=== PATIENT | female | born 1955 | race Caucasian/White ===

== ENCOUNTER 2018-04-11 16:50 | Inpatient (IN) | payer OTHER, MEDICARE ==
[~2018-04-11] VITALS: Ht 160 cm; Wt 87.5 kg
[~2018-04-11 16:50] MED LIST: BACTRIM DS TAB1 EACH PO; FUROSEMIDE20 MG PO; KEFLEX500 M1 PO; LUMIGAN 7.5 ML7.5 M1 OP; NEXIUM 40MG40 MG PO; OXYCODONE AND A1 TA2 PO; OXYCONTIN10 MG PO; PATADAY 2.5 ML2.5 ML OPH; ULTRAM(MONOGRAP50 MG PO
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
[2018-04-11 17:48] LABS: ABSOLUTE BASOPHIL COUNT 0 /CUMM (0.0-0.2); ABSOLUTE EOSINOPHIL COUNT 0 /CUMM (0.0-0.7); ABSOLUTE GRANULOCYTE CT 8.2 /CUMM (1.4-6.5); ABSOLUTE LYMPH COUNT 0.9 /CUMM (1.2-3.4); ABSOLUTE MONOCYTE COUNT 0.6 /CUMM (0.10-0.60); BASOPHIL % 0.1 % (0.0-2.0); EOSINOPHIL % 0.2 % (0-5); GRANULOCYTE % 84.4 % (42.2-75.2); HEMATOCRIT 43.5 % (37-47); MEAN CORPUSCULAR HGB 29.5 PG (27.0-31.0); MEAN CORPUSCULAR HGB CONC 33.1 G/DL (33.0-37.0); MEAN CORPUSCULAR VOLUME 89.2 FL (81.0-99.0); MEAN PLATELET VOLUME 8.9 FL (7.4-10.4); PLATELET COUNT 129 /CUMM (130-400); RED BLOOD CELL CT 4.88 /CUMM (4.20-5.40); WHITE BLOOD CELL COUNT 9.7 /CUMM (4.8-10.8)
[2018-04-11] MEDS ORDERED: LUMIGAN2.5 ML OU (21:39)
[2018-04-11] MEDS ORDERED: VITAMIN D250000 UNIT PO (21:40)
[2018-04-11] MEDS ORDERED: PERCOCET 7.5-31 EACH PO (21:40)
[2018-04-11] MEDS ORDERED: PATADAY2.5 ML OU (21:40)
[2018-04-11] MEDS ORDERED: NEXIUM40 M1 PO (21:40)
[2018-04-11] MEDS ORDERED: HYDROCHLOROTH12.5 M3 PO (21:42)
[2018-04-11] MEDS ORDERED: MULTIVITAMINS1 EAC9 PO (21:42)
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
[2018-04-12 22:15] VITALS: BP 140/75
[2018-04-13 08:08] VITALS: BP 143/87
--- NOTE | 2018-04-13 11:44 | History & Physical ---
General Information and HPI History of Present Illness: 63-year-old female with history of chronic kidney disease stage III, hepatitis C status post treatment with Harvoni, cirrhosis, osteoarthritis, muscular dystrophy. Admitted to the inpatient psychiatric service after being brought to the ER by family with concerns of worsening paranoia. Admitted to the inpatient psychiatry service for further management. Currently resting comfortably not in any acute distress. D denies abdominal pain. Denies diarrhea or constipation. Denies chest pain or palpitations. Denies nausea or vomiting. Denies bloody stools. Admits to chronic bilateral lower extremity swelling worse on the left. Denies heat or cold intolerance. Denies weight loss. Allergies/Medications Allergies: Coded Allergies: Iodinated Contrast- Oral and IV Dye (Iodinated Contrast Media - Oral and) (ITCHY 04/11/18) Only allergic to iodinated contrast aspirin (PER PT NOT SUPPOSE TO TAKE MED BECAUSE IT INTERACTS WITH 04/11/18) ANOTHER MED shellfish derived (RASH AND HOT 04/11/18) Home Med list Alprazolam 0.5 MG TABLET 0.5 MG PO AT BEDTIME insomnia Bimatoprost (Lumigan) 0.01 % DROPS 1 GTT OU QPM BOTH EYES (Reported) Ergocalciferol (Vitamin D2) (Vitamin D2) 50,000 UNIT CAPSULE 1 CAP PO Q2W SUPPLEMENT (Reported) Esomeprazole (Nexium) 40 MG CAPSULE.DR 1 CAP PO DAILY GI (Reported) Haloperidol 1 MG TABLET 1 MG PO AT BEDTIME delirium Hydrochlorothiazide 12.5 MG CAPSULE 1 CAP PO PRN DIURETIC (Reported) Multiple Vitamin (Multivitamins) 1 EACH TABLET 1 TAB PO PRN SUPPLEMENT ( Reported) Olopatadine HCl (Pataday) 0.2 % DROPS 1 GTT OU DAILY ALLERGIES (Reported) Oxycodone HCl/Acetaminophen (Percocet 7.5-325 MG Tablet) 7.5 MG-325 MG TABLET 1 TAB PO TID PRN PAIN (Reported) Past History Travel History Traveled to [place] past 21 day No Medical History Any Pertinent Medical History? unobtainable Neurological: multiple sclerosis Gastrointestinal: HEPATITIS C Hepatic: cirrhosis, hepatitis C Musculoskeletal: osteoarthritis, MUSCULAR DYSTROPHY Blood Disorders: TTP Isolation History: Standard Surgical History Surgical History: non-contributory Past Family/Social History Psychosocial History Where do you live? Home ETOH Use: 6 Illicit Drug Use: denies illicit drug use Review of Systems Review of Systems Constitutional: Denies: see HPI. Exam & Diagnostic Data Last 24 Hrs of Vital Signs/I&O Vital Signs Date Time Temp Pulse Resp B/P B/P Pulse O2 O2 Flow FiO2 Mean Ox Delivery Rate 04/13 0808 97.4 94 143/87 / 2215 98.7 92 140/75 / 2140 Room Air / 2054 98.7 103 20 166/87 98 Room Air / 1859 98.8 104 18 143/84 97 Room Air / 1830 Room Air / 1706 98.1 71 18 145/86 98 Room Air / 1602 Room Air / 1459 99.1 80 18 121/86 99 /08 1212 Room Air Physical Exam General Appearance Alert, Oriented X3, Cooperative, No Acute Distress Skin No Rashes, No Breakdown HEENT PERRLA, EOMI Neck Supple Cardiovascular Regular Rate, Normal S1, Normal S2, No Murmurs Lungs Clear to Auscultation, Normal Air Movement Abdomen Normal Bowel Sounds, Soft, No Tenderness Neurological Exam Findings: Cranial Nerves 3-12 NL Cranial Nerves II through XII: Within normal limits. Extremities No Clubbing (L.R pedal edema) Assessment/Plan Assessment: 63-year-old female history of chronic kidney disease stage III, cirrhosis secondary to hep C status post therapy with Harvoni, muscular dystrophy admitted for management of worsening paranoia. Currently denies any active medical symptoms. Recommendations: -Continue management of her prior diet as recommended by the psychiatry service. -Please call the medical service as needed. As Ranked By This Provider Problem List: 1. Paranoia (psychosis) Miscellaneous Miscellaneous Documentation Attending Case Discussed With: Gardenia Naidu MD Primary Care Physician: Severo Wilde MD Patient sees these Specialists None. Level of Patient Care: [facility]
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
[2018-04-13 12:22] VITALS: BP 131/83
[2018-04-13 16:13] VITALS: BP 134/70
[2018-04-13 20:24] VITALS: BP 100/78
[2018-04-14 07:37] VITALS: BP 124/61
[2018-04-14 08:14] LABS: ABSOLUTE BASOPHIL COUNT 0 /CUMM (0.0-0.2); ABSOLUTE EOSINOPHIL COUNT 0.2 /CUMM (0.0-0.7); ABSOLUTE GRANULOCYTE CT 6.8 /CUMM (1.4-6.5); ABSOLUTE LYMPH COUNT 1.8 /CUMM (1.2-3.4); ABSOLUTE MONOCYTE COUNT 0.7 /CUMM (0.10-0.60); BASOPHIL % 0.5 % (0.0-2.0); EOSINOPHIL % 1.7 % (0-5); GRANULOCYTE % 71.5 % (42.2-75.2); HEMATOCRIT 44.4 % (37-47); MEAN CORPUSCULAR HGB 29.9 PG (27.0-31.0); MEAN CORPUSCULAR HGB CONC 33.7 G/DL (33.0-37.0); MEAN CORPUSCULAR VOLUME 88.7 FL (81.0-99.0); MEAN PLATELET VOLUME 9.4 FL (7.4-10.4); PLATELET COUNT 141 /CUMM (130-400); RBC DISTRIBUTION WIDTH 14.6 % (11.5-14.5); RED BLOOD CELL CT 5.01 /CUMM (4.20-5.40); WHITE BLOOD CELL COUNT 9.6 /CUMM (4.8-10.8)
[2018-04-14 12:05] VITALS: BP 147/82
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
[2018-04-14 15:28] VITALS: BP 140/79
[2018-04-14 19:35] VITALS: BP 148/87
[2018-04-15 07:39] VITALS: BP 140/89
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
[2018-04-15 12:27] VITALS: BP 141/79
--- NOTE | 2018-04-15 12:30 | SOCIAL WORKER PROG NOTE PSYCH ---
Social Work Progress Note Progress Note The services requested require additional review. You will be contacted regarding the status of this request if further information is needed. An authorization decision will be made within the required timeframes and details of that decision may be found under the member's authorization history. Member Name Member ID Member Subscriber Name Subscriber ID GILBERTO WILKINS [id number] GILBERTO WILKINS [id number] Pended Authorization # Client Authorization # Type of Request [id number] CONCURRENT Date of Admission/ Start of Services Requested From Submission Date 04/12/2018 04/15/2018 04/15/2018 Level of Service Type of Service Level of Care Type of Care INPATIENT/HLOC [facility]patient [facility] Reason Code P76 Provider Name & Address Provider ID Provider Alternate ID NPI # for Authorization NIKIA WILLIAMSON [id number] N/A [address] [facility] [id number] Message
[2018-04-15 16:47] VITALS: BP 148/98
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
[2018-04-15 20:05] VITALS: BP 131/80
[2018-04-16 07:48] VITALS: BP 134/87
--- NOTE | 2018-04-16 08:04 | CP SOUTH PROGRESS NOTE PSYCH ---
Psych (Inpt) Progress Note Progress Note Treatment team (ELBA, RN, OTR/L, Psychiatrist) discussed the Pt.'s progress, treatment plan, and aftercare plans. Vital Signs: Blood pressure: 134/87 mmHg, pulse 91 bpm, and temperature 97.8F Mental Status examination: The patient uses a walker because of peripheral neuropathy. She was pleasant, calm and cooperative. Today, she did not bring up concerns about surveillance/ identity theft Pt. was less talkative and less tangential today She reported that her mood was "good", affect was calm and did not show irritability or anger or frustration during the interview. Pt. denied hallucinations, did not bring up ideas of reference/paranoid ideation patient did very well on the cognitive testing with intact short-term memory intact attention and concentration including spelling backwards subtracting by sevens naming the presidents recalling words and full orientation to time place and person Assessment: Adry is a 63-year-old White female with acute onset of paranoia in the setting of recent illness, seems to be improving. Yeeamuf-Qyjsa-Pndpo disease Plan update Continue Haldol 1 mg at bedtime and Alprazolam 0.5 MG AT BEDTIME Ergocalciferol 50,000 IU Q 2 WEEKS Haloperidol 1 MG AT BEDTIME Haloperidol 0.25 MG FOUR TIMES A DAY PRN Hydrochlorothiazide 12.5 MG Q12P PRN Latanoprost 1 GTT AT BEDTIME Omeprazole 40 MG DAILY AC Oxycodone/ 1 TAB TID PRN Acetaminophen Acetaminophen Alprazolam 0.5 MG AT BEDTIME Ergocalciferol 50,000 IU Q 2 WEEKS Haloperidol 1 MG AT BEDTIME Haloperidol 0.25 MG FOUR TIMES A DAY PRN Hydrochlorothiazide 12.5 MG Q12P PRN Latanoprost 1 GTT AT BEDTIME Omeprazole 40 MG DAILY AC Oxycodone/ 1 TAB TID PRN Acetaminophen PO PO 0651 Oxycodone/ 1 TAB TID PRN 04/12 1800 AC 04/15 Acetaminophen PO 2045
[2018-04-16 12:36] VITALS: BP 153/84
--- NOTE | 2018-04-16 13:52 | SOCIAL WORKER PROG NOTE PSYCH ---
Social Work Progress Note Progress Note Adry asked me if it was okay for her sister to join the meeting with her tomorrow. I told her that would be fine. Adry is starting to feel back to herself. Reported feeling depressed and overwhelmed prior to admission and now feeling less so. She said normally she diogo well with life stressors, but it just got to be too much. Having a UTI could have also caused increased symptoms. She did spend a lot of time today talking about how things could be improved on the unit so there is less stimulation. Seems like she felt over stimulated by the TV, by the nurses at the nursing station, and all the families / friends that are visiting. Asked her if she has any issues surrounding the phone today? She said she didn't. She is definetely organized with her thoughts and oriented x3. She seems less paranoid today. Asked if she thought having a therapist to talk to every so often would be helpful? She said she would consider it. She is not open to seeing anyone in the [place] area. I told her we would discuss it further at the family meeting tomorrow.
[2018-04-16 15:52] VITALS: BP 144/72
[2018-04-16 19:26] VITALS: BP 143/82
[2018-04-17 07:42] VITALS: BP 148/74
--- NOTE | 2018-04-17 08:42 | CP SOUTH PROGRESS NOTE PSYCH ---
Psych (Inpt) Progress Note Progress Note ELBA, RN, OTR/L, Activities Therpaist, and Psychiatrist discussed the Pt.'s progress, treatment plan, and aftercare plans. Vital Signs: Blood Pressure: 148/74 mmHg, Pulse 93 beats/min., and Temperature: 96.8F Mental Status Examination: no impairment in memory, alert, oriented x3, uses a walker because of peripheral neuropathy, pleasant, calm, cooperative, normal speech (not talkative not tangential) mood was "good", affect was calm and did not show irritability or anger or frustration during the interview, denied hallucinations, did not bring up ideas of reference/paranoid ideation, intact attention and concentration Assessment: Adry is a 63-year-old White female who was admitted on 04/12/2018 with an acute onset of paranoia probably due to delirium Diagnoses: ? Delirium due to UTI Pjfmgbl-Gjqoi-Eeqxv disease Plan update Continue Haldol 1 mg at bedtime and Continue Alprazolam 0.5 MG AT BEDTIME Ergocalciferol 50,000 IU Q 2 WEEKS Haloperidol 1 MG AT BEDTIME Haloperidol 0.25 MG FOUR TIMES A DAY PRN Hydrochlorothiazide 12.5 MG Q12P PRN Latanoprost 1 GTT AT BEDTIME Omeprazole 40 MG DAILY AC Oxycodone/ 1 TAB TID PRN
[2018-04-17 12:12] VITALS: BP 149/84
[2018-04-17] MEDS ORDERED: ALPRAZOLAM0.5 M4 PO (16:10)
[2018-04-17] MEDS ORDERED: HALOPERIDOL1 M1 PO (16:10)
--- NOTE | 2018-04-17 16:11 | Patient Discharge Instructions ---
Psych Discharge Inst General Discharge Information Reason for Admission: delirium vs. psychotic episode Psy Discharge Primary Diag+ Delirium vs. Unspecified Summary Tests/Major Procedures Lab Granular Casts FEW /LPF H 04/12/18 1458 Hyaline Casts FEW H 04/12/18 1458 Ur Epithelial Cells MOD H 04/12/18 1458 Ur Leukocyte Esterase TRACE H 04/12/18 1458 Ur Microscopic SEDIMENT EXAMINED 04/12/18 1458 Ur Specific [place] >= 1.030 04/12/18 1458 Urinalysis LIGHT H 04/12/18 1458 Urine Bacteria FEW H 04/12/18 1458 Urine Bilirubin NEG@ICTO 04/12/18 1458 Urine Clarity HAZY H 04/12/18 1458 Urine Color YEL 04/12/18 1458 Urine Glucose NEG MG/DL 04/12/18 1458 Urine Hemoglobin TRACE-INTACT 04/12/18 1458 Urine Ketones 15 H 04/12/18 1458 Urine Mucus MOD H 04/12/18 1458 Urine Nitrite NEG 04/12/18 1458 Urine Protein TRACE MG/DL H 04/12/18 1458 Urine RBC 1-3 /HPF 04/12/18 1458 Urine Urobilinogen 0.2 EU/dl 04/12/18 1458 Urine WBC 1-3 /HPF H 04/12/18 1458 Urine pH 5.5 04/12/18 1458 Studies Pending at DC: None Patient Instructions Contact Information Your Psychiatrist on [facility] was Kaia VAIL,Eric * If you are experiencing an emergency related to this hospitalization, please call [phone] to contact the treating psychiatrist or the psychiatrist-on- call. * To Request a copy of your medical records, please contact the Medical Records Department at [phone]. * To request results of studies pending at the time of discharge, please call [phone]. * Continue your Medications until directed to stop by your Healthcare provider. General Medication Information Please continue to take your new medications and your continued home medications , unless otherwise indicated on your discharge medication list, or unless directed by your MD or PRODUCT SAFETY OFFICER to stop them. Special Instructions Diet Regular Activity As Tolerated - Tobacco Use Treatment Offered Post DC Medications Offered: Not Applicable Post DC Tobacco Treatment Plan: Not Applicable - EtOH/Drug Use D/O Treatment Offered Post DC Medications Offered: NA-No EtOH/Drug Use D/O Post DC EtOH/SubAbuse TX Plan: NA-No EtOH/Drug Use D/O Metabolic Screening Patient on a neuroleptic(s) . Enter below results for Hemoglobin A1C, and lipid panel if obtained during the last 365 days. BMI: 34.100 Blood Pressure: 149/84 Laboratory Results From [facility] (If applicable): Lab Cholesterol 180 MG/DL 04/14/18 0630 Cholesterol/HDL Ratio 2 % 04/14/18 0630 HDL Cholesterol 86 mg/dL H 04/14/18 0630 Hemoglobin A1c 5.0 % 04/14/18 0630 LDL Cholesterol, Calc 70 mg/dL 04/14/18 0630 Triglycerides 120 mg/dL 04/14/18 0630 Advance Directives Does the Patient have Medical Advance Directives No/Refused further info Does Pt have Psychiatric Advance Directives? No/Refused further info Does Patient have a Designated Surrogate Decision Maker: No Information About Psychiatric Advance Directives Provided? Unable to Comprehend Discharge Plan Post Hospital Treatment Plan: GH-OPS
--- NOTE | 2018-04-17 16:14 | DISCHARGE SUMMARY REPORT-PSYCH ---
Visit Information Visit Dates/Diagnosis' Admission Date: 04/12/18 Discharge Date: 04/17/18 Reason for Admission: delirium vs. psychotic episode Psy Discharge Primary Diag: Delirium vs. Unspecified Hospital Course Significant Lab Findings: Lab Granular Casts FEW /LPF H 04/12/18 1458 Hyaline Casts FEW H 04/12/18 1458 Ur Epithelial Cells MOD H 04/12/18 1458 Ur Leukocyte Esterase TRACE H 04/12/18 1458 Ur Microscopic SEDIMENT EXAMINED 04/12/18 1458 Ur Specific [place] >= 1.030 04/12/18 1458 Urinalysis LIGHT H 04/12/18 1458 Urine Bacteria FEW H 04/12/18 1458 Urine Bilirubin NEG@ICTO 04/12/18 1458 Urine Clarity HAZY H 04/12/18 1458 Urine Color YEL 04/12/18 1458 Urine Glucose NEG MG/DL 04/12/18 1458 Urine Hemoglobin TRACE-INTACT 04/12/18 1458 Urine Ketones 15 H 04/12/18 1458 Urine Mucus MOD H 04/12/18 1458 Urine Nitrite NEG 04/12/18 1458 Urine Protein TRACE MG/DL H 04/12/18 1458 Urine RBC 1-3 /HPF 04/12/18 1458 Urine Urobilinogen 0.2 EU/dl 04/12/18 1458 Urine WBC 1-3 /HPF H 04/12/18 1458 Urine pH 5.5 04/12/18 1458 Course Complications: The patient did not have any major complications while she was on the inpatient psychiatric unit. Consultations: Patient had a history & physical examination by Dr. Power Jarrell MD (on 2017). Please refer to the patient's electronic health record for the details of the H&P. Summary of Dr. Jarrell's Assessment: 63-year-old female history of chronic kidney disease stage III, cirrhosis secondary to hep C status post therapy with Harvoni, muscular dystrophy admitted for management of worsening paranoia. Currently denies any active medical symptoms. Recommendations: -Continue management of her prior diet as recommended by the psychiatry service. -Please call the medical service as needed. Primary Care Physician: Severo Wilde MD Allergies: Coded Allergies: Iodinated Contrast- Oral and IV Dye (Iodinated Contrast Media - Oral and) (ITCHY 04/11/18) Only allergic to iodinated contrast aspirin (PER PT NOT SUPPOSE TO TAKE MED BECAUSE IT INTERACTS WITH 04/11/18) ANOTHER MED shellfish derived (RASH AND HOT 04/11/18) Hospital Course/TX Response: 04/17/2018: Blood Pressure: 148/74 mmHg, Pulse 93 beats/min., and Temperature: 96.8F Mental Status Examination: no impairment in memory, alert, oriented x3, uses a walker because of peripheral neuropathy, pleasant, calm, cooperative, normal speech (not talkative not tangential) mood was "good", affect was calm and did not show irritability or anger or frustration during the interview, denied hallucinations, did not bring up ideas of reference/paranoid ideation, intact attention and concentration Assessment: Adry is a 63-year-old White female who was admitted on 04/12/2018 with an acute onset of paranoia probably due to delirium Diagnoses: ? Delirium due to UTI Xkuqmxq-[id number]-Wjyzl disease Plan update Discharge Home Discharge HBIPS - Tobacco Use Treatment Offered - EtOH/Drug Use D/O Treatment Offered Metabolic Screening - Screen if on a Neuroleptic Medication - Metabolic screening should include: - Blood Pressure, BMI, Glucose or Hgb A1c, & a - Lipid profile from within the past 365 days. Discharge Instructions General Discharge Information Discharge Diet Regular Discharge Activity As Tolerated Referrals Ordered Referrals Provider Referral 04/30/18 For Groups: Outpatient Psychiatry [facility] Intake on 04/30/18 11am [address] [place] [address] Provider Referral 05/02/18 For Groups: Outpatient Psychiatry [facility] appt. for medication evaluation with Dr. Armenta [address] [place] [address] Prescriptions Continue taking these medications: Bimatoprost (Lumigan) 0.01 % DROPS 1 Drop Both Eyes Every night Qty = 5 Comments: Last Taken:LATANOPROST GIVEN IN HOSPITAL 04/16/18 Time:2127 Ergocalciferol (Vitamin D2) (Vitamin D2) 50,000 UNIT CAPSULE 1 Capsule ORAL EVERY 2 WEEKS Qty = 6 Comments: Last Taken:04/13/18 Time:0847 Olopatadine HCl (Pataday) 0.2 % DROPS 1 Drop Both Eyes DAILY Comments: Last Taken:VISINE-A GIVEN 04/17/18 Time:09 Oxycodone HCl/Acetaminophen (Percocet 7.5-325 MG Tablet) 7.5 MG-325 MG TABLET 1 Tablet ORAL THREE TIMES DAILY as needed for PAIN Qty = 90 Comments: Last Taken:04/17/18 Time:040 Esomeprazole (Nexium) 40 MG CAPSULE.DR 1 Capsule ORAL DAILY Qty = 30 Comments: Last Taken:PRILOSEC GIVEN IN HOSPITAL 04/17/18 Time:0716 Hydrochlorothiazide (Hydrochlorothiazide) 12.5 MG CAPSULE 1 Capsule ORAL as needed for DIURETIC Qty = 90 Comments: Last Taken:NOT GIVEN IN HOSPITAL Multiple Vitamin (Multivitamins) 1 EACH TABLET 1 Tablet ORAL as needed for SUPPLEMENT Comments: Last Taken:04/17/18 Time:09 Start taking the following new medications: Haloperidol (Haloperidol) 1 MG TABLET 1 Milligram ORAL AT BEDTIME Qty = 15 No Refills Comments: Last Taken:04/16/18 Time:2127 Alprazolam (Alprazolam) 0.5 MG TABLET 0.5 Milligram ORAL AT BEDTIME Qty = 16 No Refills Comments: Last Taken:04/16/18 Time:2129 Studies Pending at Discharge None
--- NOTE | 2018-04-17 16:17 | SOCIAL WORKER PROG NOTE PSYCH ---
Social Work Progress Note Progress Note Family meeting held with Adry, her , and her sister Missy. Talked about the combination of stressors and medical issues that seemed to have brought on Adry's delirium. She has cleared from that and her family feel she is ready to return home today. Adry cognitive functioning seems to be sharp at this time. She has been spending time at [employer] today and remembering her upcoming appts. She is not talking about any issues related to the phones at this point. Her has fixed all the phone problems at home. He seems very supportive. They have been together for [address] Marti explained that she should remain on the Haldol until she is seen for her next med evaluation. At that point it can be determined whether or not she will need to continue it. Adry is not open to seeing any providers in the [place] area and prefers [facility], so I will schedule her with [facility]. Family advocated for her to come home with them today. We decided that was a safe plan, since symptoms seem to be resolved and she is doing much better. Intake at [facility] is 04/30 at 11am and the med eval is 05/[address] Armenta.
--- NOTE | 2018-04-17 16:54 | SOCIAL WORKER PROG NOTE PSYCH ---
Social Work Progress Note Faxed Referral(s) Referred To: [facility] Transition of Care Documents sent: Health Summary Faxed to: [facility] Fax #: [phone] Faxed by: Marian Hernandez Date faxed: 04/17/18 Time Faxed: [phone]
== END 2018-04-17 17:06 | DRG 880 ==
LOC: ERH 16:50 → ERHI 04-12 16:36 → CP SOUTH 04-12 16:36 → ENTRNSPT 04-12 21:43 → EDTRNSPT 04-12 21:49 → EDTRNSPTSTS 04-12 21:49 → CMPTRNSPT 04-12 22:05 → CP SOUTH 04-12 22:10 → ENRESERV 04-12 23:59 → CP SOUTH 04-15 10:40
PROVIDERS: Physician Assistant; Student in an Organized Health Care Education/Training Program
DX: F05 Delirium due to known physiological condition (principal)
CPT/HCPCS: 36415; 80307; 81001; 87086; 87147; 93005; 93010; G0463; G0480; J1200; J1630